=== PATIENT | female | born 1995 | race Caucasian/White ===

== ENCOUNTER 2020-06-17 18:48 | Emergency (ER) | payer OTHER ==
[~2020-06-17] VITALS: Ht 162.6 cm; Wt 85.5 kg
[2020-06-17] MEDS ORDERED: PEPC1TAB5 PO (18:56)
[2020-06-17] MEDS ORDERED: UNIS25TA5 PO (18:56)
[2020-06-17] MEDS ORDERED: MULTTAB20 PO (18:56)
[2020-06-17] MEDS ORDERED: PYRI25TA2 PO (18:56)
[2020-06-17] MEDS ORDERED: ONDA8TAB8 PO (18:56)
[2020-06-17 19:56] LABS: BASO % 0.4 % (0.0-1.0); EOS # 0.1 10^3/uL (0.0-0.5); EOS % 0.7 % (0.0-3.0); HEMATOCRIT 35.8 % (36.0-47.0); HEMOGLOBIN 12.1 g/dl (12.0-15.5); LYMPH # 2.2 10^3/uL (1.5-5.0); LYMPH % 24.2 % (24.0-44.0); MEAN CORPUSCULAR HEMOGLOBIN 29.6 pg (27.0-33.0); MEAN CORPUSCULAR HGB CONC 33.8 g/dl (32.0-36.5); MEAN CORPUSCULAR VOLUME 87.5 fl (80.0-96.0); MONO # 0.7 10^3/uL (0.0-0.8); MONO % 7.7 % (2.0-8.0); NEUTROPHILS # 5.9 10^3/uL (1.5-8.5); NEUTROPHILS % 66.6 % (36.0-66.0); PLATELET COUNT, AUTOMATED 136 10^3/uL (150-450); RED BLOOD COUNT 4.09 10^6/uL (4.00-5.40); WHITE BLOOD COUNT 8.9 10^3/uL (4.0-10.0)
--- NOTE | 2020-06-17 20:29 | REPVR ---
PROCEDURE INFORMATION: Exam: US , Limited Exam date and time: 06/17/2020 8:03 PM Age: 25 years old Clinical indication: Pain; Other: Trauma; Gestational age or lmp: 15wks; ; Additional info: Preg trauma TECHNIQUE: Imaging protocol: Real-time ultrasound of the maternal uterus with image documentation. Exam focused on the clinical indication. COMPARISON: No relevant prior studies available. FINDINGS: Gestation: Single intrauterine gestation. heart rate: heart rate 160 bpm Placenta: Low-lying posterior fundal placenta to be evaluated later in to exclude placenta previa. Amniotic fluid index: KAYLIN 10.5 cm. MATERNAL: Cervix: Cervix measures 4.1 cm. No evidence of bulging membranes or funneling. IMPRESSION: 1. No acute findings. 2. Low posterior fundal placenta to be evaluated later in to exclude placenta previa. Electronically signed by: Jhonatan Espinoza On 06/17/2020 20:29:42 PM
[2020-06-17 20:32] LABS: BLOOD UREA NITROGEN 8 MG/DL (7-18); CALCIUM LEVEL 9.4 MG/DL (8.5-10.1); CARBON DIOXIDE LEVEL 21 MEQ/L (21-32); CHLORIDE LEVEL 105 MEQ/L (98-107); CPK CREATINE PHOSPHOKINASE 73 U/L (26-192); CREATININE FOR GFR 0.62 MG/DL (0.55-1.30); FREE T4 0.88 NG/DL (0.76-1.46); GLOMERULAR FILTRATION RATE > 60.0 (>60); GLUCOSE, FASTING 107 MG/DL (70-100); MAGNESIUM LEVEL 1.8 MG/DL (1.8-2.4); POTASSIUM SERUM 3.8 MEQ/L (3.5-5.1); SODIUM LEVEL 137 MEQ/L (136-145); TROPONIN I < 0.02 NG/ML (< 0.10)
[2020-06-17 20:42] LABS: HCG, SERUM QUANTITATIVE 36760 MIU/ML; MB/CK RELATIVE INDEX 1.37 (< OR =4)
[2020-06-17 23:15] VITALS: BP 141/84
--- NOTE | 2020-06-18 10:15 | ECGEPIP ---
[facility] - ED Test Date: 2020-06-17 Pat Name: ALVIN ABAD Department: Room: - Gender: Female Organic Chemist: JACKIE : 1995 Requested By: RICARDO Garcia Order Number: [id number] Reading MD: Clarita Hicks Measurements Intervals [place] Rate: 89 P: 19 AK: 116 QRS: 28 QRSD: 94 T: 20 QT: 356 QTc: 433 Interpretive Statements Normal sinus rhythm Incomplete right bundle branch block no prior Electronically Signed on 06-18-2020 10:14:55 EDT by Clarita Hicks
== END 2020-06-17 23:30 | disposition home or self-care (01) ==
LOC: M ED 18:48
DX: O20.0 Threatened abortion (principal); O99.891 Other specified diseases and conditions complicating pregnancy; R55 Syncope and collapse; O44.42 Low lying placenta NOS or without hemorrhage, second trimester; O99.412 Diseases of the circulatory system complicating pregnancy, second trimester; Z3A.15 15 weeks gestation of pregnancy

== ENCOUNTER 2020-07-11 10:26 | Emergency (ER) | payer OTHER ==
[~2020-07-11] VITALS: Ht 162.6 cm; Wt 85.3 kg
[~2020-07-11 10:26] MED LIST: MULTTAB20 PO; ONDA8TAB8 PO; PEPC1TAB5 PO; PYRI25TA2 PO; UNIS25TA5 PO
[2020-07-11 11:05] LABS: BASO % 0.4 % (0.0-1.0); EOS # 0.1 10^3/uL (0.0-0.5); EOS % 0.7 % (0.0-3.0); HEMATOCRIT 34.4 % (36.0-47.0); HEMOGLOBIN 11.7 g/dl (12.0-15.5); LYMPH # 1.7 10^3/uL (1.5-5.0); LYMPH % 24.7 % (24.0-44.0); MEAN CORPUSCULAR HEMOGLOBIN 30.3 pg (27.0-33.0); MEAN CORPUSCULAR VOLUME 89.1 fl (80.0-96.0); MONO # 0.5 10^3/uL (0.0-0.8); MONO % 7.5 % (2.0-8.0); NEUTROPHILS # 4.5 10^3/uL (1.5-8.5); PLATELET COUNT, AUTOMATED 128 10^3/uL (150-450); RED BLOOD COUNT 3.86 10^6/uL (4.00-5.40); WHITE BLOOD COUNT 6.8 10^3/uL (4.0-10.0)
--- NOTE | 2020-07-11 11:48 | REP ---
INDICATION: BLEEDING, CRAMPING. TECHNIQUE: Transabdominal FINDINGS: Multiple ultrasonographic images of the gravid uterus shows a single living intrauterine gestation in the caprice breech presentation. Doppler interrogation of the heart shows a heart rate of 165 beats per minute. The placenta is posterior and not low-lying. The cervix measures 4.9 cm in length and is closed. Doppler interrogation of the umbilical artery shows an AB ratio of 3.09. The subjective amniotic fluid volume is within normal limits. The calculated amniotic fluid index is 12.9 within expected range 8.8 to 20.4. IMPRESSION: Limited OB ultrasound as described above it is all signs <Electronically signed by Stevie Louis > 07/11/20 [id number]
[2020-07-11] MEDS ORDERED: cefTRIAXone SOD 1 GM in D5W MINI-BAG PLUS 50 ML IV ONE (12:20)
[2020-07-11 13:30] VITALS: BP 131/70
--- NOTE | 2020-07-12 08:18 | ED PDOC ---
Post-Departure Follow-Up radiology rpeort faxed to Clarita Ellington MD July 12, 2020 08:18
== END 2020-07-11 13:45 | disposition home or self-care (01) ==
LOC: M ED 10:26
DX: O20.0 Threatened abortion (principal); O99.891 Other specified diseases and conditions complicating pregnancy; R30.0 Dysuria; Z3A.18 18 weeks gestation of pregnancy; Z79.899 Other long term (current) drug therapy
CPT/HCPCS: 76815; 81001; 85025; 86850; 86900; 86901; 87086; 96365; 99283; J0696

== ENCOUNTER 2020-11-12 21:18 | Outpatient (CLI) | payer OTHER ==
--- NOTE | 2020-11-12 22:24 | IPNPDOC ---
Text Note Date of Service The patient was seen on 11/12/20. NOTE 25 yo at 36+0 weeks gestation presented to L&D with the complaint of decreased movement over the last 24 hours and intermittent contractions. She denies bleeding or leakage of fluid. She reports throughout her entire and all previous pregnancies that she has had trouble feeling her babies move and never gets her kick counts. This feeling is not unusual for her . However, she had soda before she came to triage and felt the baby move when she got here. Chaperoned by RN Vitals - VSS, afebrile, normotensive, non tachycardic General - AAOX3, sitting up in bed, pleasant and conversant, NAD. Abdomen - Gravid uterus appropriate size for gestational age. No fundal tenderness. Fetus visible moving on abdomen Cervix - 50/-3 FHR tracing - Cat I with baseline 135, moderate variability, numerous accels, no decels. Intermittent ctx on toco. Bedside TAUS ( anatomy not assessed): Viable SIUP in cephalic presentation. Incidental 8/8 BPP in less than 5 minutes. KAYLIN 21.4 cm. 10/10 BPP based on NST and bedside US. Not in active labor. Patient felt and saw movement while in triage and was reassured. I offered to recheck her cervix in a couple hours to assess for change but she declined and desired to return home. She has an appointment next week in the office. Discharge return precautions discussed. All questions answered. 30 minutes MYLES Arias DO Nov 12, 2020 22:24
== END 2020-11-12 22:28 | disposition home or self-care (01) ==
LOC: M LDO 21:18
PROVIDERS: ATTEND Obstetrics & Gynecology
DX: O36.8130 Decreased fetal movements, third trimester, not applicable or unspecified (principal); Z3A.36 36 weeks gestation of pregnancy
CPT/HCPCS: 59025; G0378; G0463

== ENCOUNTER 2020-12-10 21:46 | Inpatient (IN) | payer OTHER ==
[~2020-12-10] VITALS: Ht 162.6 cm; Wt 94.0 kg
[2020-12-10 22:06] VITALS: BP 141/72
[2020-12-10] MEDS ORDERED: [UNRECOGNIZED DRUG - CODE] PO (22:09)
[2020-12-10] MEDS ORDERED: HOME MED LIST COMPLETE! XX SCH (22:10)
[2020-12-10] MEDS ORDERED: TRANEXAMIC ACID INJection 1,000 MG in NS 100 ML IV PRN (23:25)
[2020-12-10] MEDS ORDERED: LR 1,000 ML IV SCH (23:25)
[2020-12-10] MEDS ORDERED: LIDOCAINE 1% MDV 20ML VIAL INFIL PRN (23:25)
[2020-12-10] MEDS ORDERED: OXYTOCIN DRIP 30 UNITS in IV 1 EA IV PRN ×4 (23:25)
[2020-12-10] MEDS ORDERED: OXYTOCIN INJ 10 UNITS/ML VIAL (J2590) IM PRN (23:25)
[2020-12-10] MEDS ORDERED: miSOPROStol 25MCG 1/4 TABLET PO ONE (23:25)
[2020-12-10] MEDS ORDERED: CARBOPROST TROMETHAMINE 250 MCG/ML AMP IM PRN (23:25)
[2020-12-10] MEDS ORDERED: LACTATED RINGER'S 1000 ML IV STA (23:25)
[2020-12-10] MEDS ORDERED: OXYTOCIN INJ 10 UNITS/ML VIAL (J2590) IV PRN (23:25)
[2020-12-10] MEDS ORDERED: OXYTOCIN DRIP 30 UNITS in IV 1 EA IV SCH (23:25)
[2020-12-10 23:31] VITALS: BP 132/98
[2020-12-10 23:34] VITALS: BP 106/53
--- NOTE | 2020-12-10 23:44 | HPEPDOC ---
Obstetrical History & Physical General Date of Admission Dec 10, 2020 at 23:19 History of Present Illness The patient is a 25 yo @ 40W0D by LMP C/W 9 WK US admitted for IOL at term. patient presented to triage for contractions for the last few hours and was found to be 1 cm, unchanged from clinic the day prior when her membranes were stripped. She denies any vaginal bleeding, abnormal vaginal discharge, leakage of fluids, urinary symptoms. She denies any new headaches, visual abnormalities, chest pain, worsening dyspnea, facial swelling, or upper e xtremity swelling. At this time, she continues to report regular movement. Information Provided By: Patient Care Care: Good Care Dating Final EDC: Dec 10, 2020 Final EDC by: LMP LMP: Mar 05, 2020 Estimated Date of Confinement: Dec 10, 2020 EGA at Admission: 40 Antepartum Course Diagnos(e)s 1. OBESITY, PP BMI 31 2. 2 vessel Cord 3. Anemia- admission h/h: pending 4. Gestational thrombocytopenia- admission plt: pending 5. Varicella non immune- give vaccine pp Height (inches): 64 Pre- weight (lbs.): 182 Admission Weight (lbs.): 206 Change in Weight (lbs.): 24 Past Medical History Past Obstetrical History : Past Obstetrical History: Multigravida [employer] History: No pertinent history Past Medical History Medical History obese Surgical History: Denies/None Family History Significant Family History: No pertinent family hx Social History Marital Status: Psychosocial History: No pertinent psych hx * Smoker: non-smoker Alcohol: Denies Drugs: denies Abuse Violence Screening Have you been hit/kicked/slapp: No Have you been sexually assault: No Imunizations Tdap status: declined Influenza Status: declined Allergies Coded Allergies: No Known Allergies (Unverified , 06/17/20) Medications Scheduled Famotidine (Pepcid) 20 Mg Tablet, 1 TAB PO BID No122/Iron/Folic Acid ( Multi Tablet) 1 Each Tablet, 1 TAB PO DAILY Miscellaneous Medications Guaifenesin (Mucinex) 100 Mg Gran.pack, 100 MG PO Physical Examination Physical Examination GENERAL: Alert and oriented times three. BREAST: . ABDOMEN: Gravid and non-tender to touch. FETUS: Is vertex (VTX) by sterile vaginal examination (SVE) HEART RATE: Regular rate and rhythm. LUNGS: normal work of breathing EXTREMITIES: No edema. Vital Signs/I&O Vital Signs Date Time Temp Pulse Resp B/P (MAP) Pulse Ox O2 Delivery O2 Flow Rate FiO2 12/10/20 22:06 98.7 105 16 141/72 (95) Laboratory Data Urine Culture: No Growth Pertinent Laboratoy Data Blood Type: O+ RBC Antibody Screen: Negative HIV: Negative Hepatitis B: Negative Rapid Plasma Reagin: Nonreactive Rubella: Immune Varicella: Nonreactive Chlamydia/Gonorrhea: Negative Group B Streptococcus: Negative Quad Screen Test: Negative Cystic Fibrosis: Unknown Glucose Tolerance Test: 140 Anatomy Ultrasound Placenta Location: Posterior Normal Anatomy: No (2 vessel cord) Placenta Previa: No Steroid Therapy Steroid Therapy: No Vaginal Examination Dilation: 2cm Assessment Heart Rate (FHR): 140 Variability: Moderate Accelerations: Present Decelerations: None Tocometer Contractions: Yes Frequency: regular Strength: palpated as mild Multi-drug resistant Organism: No history of MDRO Assessment/Plan Assessment Assessment: The patient is a 25 yo @ 40W0D by LMP C/W 9 WK US admitted for IOL at term.Pelvis proven to 9lbs 5 oz. Pelvis Adequate for trial of labor. Category I FHRT. APC: 1. OBESITY, PP BMI 31 2. 2 vessel Cord 3. Anemia- admission h/h: pending 4. Gestational thrombocytopenia- admission plt: pending 5. Varicella non immune- give vaccine pp 6.Abnormal 1hrs, normal 3hrs GTT SVE: /-1 GBS NEG Cephalic by vag exam EFW 3700G RH POS Placenta POSTERIOR no previa Plan Plan: - Admit to L&D. - Consent signed and given to RN - CBC with type and screen. - EFM x2 - Patient does not want epidural for now - Risks of augmentation with Cytotec, Hassan-Bulb, and Pitocin discussed with patient. - Start cervical ripening with double lumen fole bulb Labor and Delivery Counseling We will deliver your baby through the vagina with possible assistance of forceps or vacuum device if needed for maternal or indications. Forceps and vacuum are devices that can assist with vaginal delivery when normal pushing efforts cannot achieve delivery on their own or when delivery is needed in an emergency for baby's well-being. Medications may be required to induce or augment (help) your labor in order to achieve a vaginal delivery. An episiotomy may be required to help your baby to delivery vaginally. You may also require repair of any lacerations or tears of your vagina or vulva that are caused by delivery. In some cases, emergencies can occur that require an emergency section delivery so quickly that there may not be enough time to stop and complete consent forms for section. Understand that if this occurs, your providers will discuss the need for a section with you before they proceed with surgery. section is the delivery of your baby through an incision in your abdomen. In some situations, section may be safer to mom and baby than continuing labor and is only performed when clinically indicated. Risks of vaginal delivery include but are not limited to: Bleeding, infection, injury to the vagina, pelvic structures, injury to baby, damage to the uterus, reactions to anesthesia, uterine rupture, risk of hysterectomy for life threatening bleeding, or . Medications used to induce or augment labor may increase your risk for infection, uterine tachysystole, uterine rupture, heart rate abnormalities, need for emergency delivery or possible hysterectomy, and hemorrhage. Additional risks for use of forceps and vacuum include: increased risk of perineal and vaginal lacerations, risk of urinary or bowel incontinence, increased risk of injury to baby with bruising, scratches, hematomas on the head, or intracranial bleeding. DERICK MAIER MD Dec 10, 2020 23:44
[2020-12-11 00:36] LABS: HEMATOCRIT 37.8 % (36.0-47.0); HEMOGLOBIN 12.5 g/dl (12.0-15.5); MEAN CORPUSCULAR HEMOGLOBIN 30.8 pg (27.0-33.0); MEAN CORPUSCULAR HGB CONC 33.1 g/dl (32.0-36.5); MEAN CORPUSCULAR VOLUME 93.1 fl (80.0-96.0); PLATELET COUNT, AUTOMATED 137 10^3/uL (150-450); RED BLOOD COUNT 4.06 10^6/uL (4.00-5.40); WHITE BLOOD COUNT 11.7 10^3/uL (4.0-10.0)
[2020-12-11 01:01] VITALS: BP 133/77
[2020-12-11 02:11] LABS: ALT/SGPT 23 U/L (12-78); BILIRUBIN,TOTAL 0.2 MG/DL (0.2-1.0); CREATININE FOR GFR 0.56 MG/DL (0.55-1.30); GLOMERULAR FILTRATION RATE > 60.0 (>60); LDH LACTATE DEHYDROGENASE 204 U/L (84-246); URIC ACID 3.6 MG/DL (2.6-6.0)
[2020-12-11 03:17] VITALS: BP 122/74
--- NOTE | 2020-12-11 03:31 | IPNPDOC ---
Obstetrical Progress Note Date of Service Dec 11, 2020 Subjective to room for assessment. patient feeling increased pelvic pressure after DLFB came out FHT: 140, MOD LINETTE,+Accelssss, early decel--cat I tracing TOCO: -07/13 SVE: 6/75/-1, AROM CLEAR A/P ACTIVE LABOR. CAT I tracing. arom with clear fluids. continue active management. anticipate . Objective Vital Signs Date Time Temp Pulse Resp B/P (MAP) Pulse Ox O2 Delivery O2 Flow Rate FiO2 12/11/20 01:01 104 133/77 (95) 12/10/20 22:06 98.7 16 DREICK MAIER MD Dec 11, 2020 03:31
[2020-12-11 04:41] VITALS: BP 123/75
[2020-12-11 05:39] LABS: CORD GAS ABE V -3.4; CORD GAS HCO3 V 21.3 MEQ/L; CORD GAS O2 SAT V 76.7 %; CORD GAS PCO2 V 37.5 mmHg; CORD GAS PH V 7.372 UNITS; CORD GAS PO2 V 34.8 mmHg; CORD GAS SBC V 21.2 MEQ/L; CORD GAS TCO2 V 22.4 MEQ/L
[2020-12-11] MEDS ORDERED: METHYLERGONOVINE MALEATE 0.2 MG TAB PO PRN (05:45)
[2020-12-11] MEDS ORDERED: DIBUCAINE 1% OINTMENT 30GM TOP PRN (05:45)
[2020-12-11] MEDS ORDERED: MOM 30ML SUSPENSION UDC PO PRN (05:45)
[2020-12-11] MEDS ORDERED: RHOGAM 300 MCG (1500 IU) INJ (J2790) IM SCH (05:45)
[2020-12-11] MEDS ORDERED: ANUSOL HC CREAM 30GM TOP PRN (05:45)
[2020-12-11] MEDS ORDERED: IBUPROFEN 800 MG TAB PO PRN (05:45)
[2020-12-11] MEDS ORDERED: MEASLES,MUMPS,RUBELLA VACCINE INJ (MMR-II) (90707) SC SCH (05:45)
[2020-12-11] MEDS ORDERED: DOCUSATE SODIUM 100MG CAPSULE PO PRN (05:45)
--- NOTE | 2020-12-11 05:56 | DNPDOC ---
[facility] Delivery Note Delivery Note DATE OF DELIVERY: 12/11/2020 PREDELIVERY DIAGNOSIS: 40-0/7 weeks' gestation and labor. POST DELIVERY DIAGNOSIS: Delivered. PROCEDURE:Spontaneous vaginal delivery BELT AND LINK ASSEMBLY SUPERVISOR: Tariq Carr MD ANESTHESIA: NONE ESTIMATED BLOOD LOSS: 200 mL. FINDINGS: 8 pound 5 ounce, 3770G MALE infant, Score5/8 , NO nuchal cord times DELIVERY SUMMARY: Patient is a 25 YO S/P AT TERM after being admitted for IOL AT 40 WEEKS. She progressed to C/C/+2 and with good maternal effort delivered a viable infant. The infants head delivered OA and the head was allowed to spontaneously restitute LACEY. NO nuchal cord CORD . anterior shoulders delivered with gentle downward traction followed by posterior shoulder and corpus without difficulty. Normal 3-vessel cord clamped x 2 and cut by FOB after 1 minute of delayed cord clamping. Spontaneous cry noted. placed on maternal abdomen for [id number] Cord blood obtained. Placenta delivered spontaneously and inspection of the placenta demonstrated that it was intact. The cord insertion appeared normal. The uterus was cleared of all clots and debris. Fundal massage until firm. 30 units of Pitocin administered per protocol and the patient required no additional uterotonics. Inspection of cervix, perineum, and vaginal wall revealed 1st degree laceration that was repaired in the usual fashion with a 2-0 vicryl. . Repeat uterine examination noted uterine tone to be adequate and firm. Mom and stayed in L&D in hemodynamic stable condition upon my departure. Sponge, lap and needle count correct x 2. RICK MAIER Staff DERICK MAIER MD Dec 11, 2020 05:56
[2020-12-11] MEDS: PRENATAL VITAMINS CHEWABLE TABLET PO SCH (09:00)
[2020-12-11 10:00] VITALS: BP 102/55
[2020-12-11] MEDS: DOCUSATE SODIUM 100MG CAPSULE PO SCH ×2 (15:52→20:03)
[2020-12-11 18:00] VITALS: BP 138/80
[2020-12-11] MEDS: ACETAMINOPHEN 500 MG TAB PO PRN (19:44)
[2020-12-12] MEDS: ACETAMINOPHEN 500 MG TAB PO PRN (01:47)
[2020-12-12 06:20] VITALS: BP 125/80
[2020-12-12] MEDS: PRENATAL VITAMINS CHEWABLE TABLET PO SCH (09:00)
[2020-12-12] MEDS: DOCUSATE SODIUM 100MG CAPSULE PO SCH (09:00)
--- NOTE | 2020-12-12 09:06 | IPNPDOC ---
Progress Note Date of Service: Dec 12, 2020 Day#: 1 Progress Note Ms. Cee is a 25yo dya 1 after an uncomplicated vaginal del allyson at term after admission for induction at 40 weeks gestation. 8 pound 5 ounce, 3770G MALE infant, Score5/8, EBL 200cc. She has been ambulating, voiding spontaneously without issue and tolerating regular diet. Breast feeding without issue. Reports lochia is less than a normal period. Patient is ambulating well. Reports some cramping with . Denies any pain. V oiding and stooling without difficulty. OBJECTIVE: VITAL SIGNS: Within normal limits, afebrile. Alert and oriented times three. No increased work of breathing. Heart rate: non-tachycardic Abdomen: Fundus firm at U-2. Soft, NTTP. [Minimal] lochia per patient. ASSESSMENT: Ms. Cee is a 25yo dya 1 after an uncomplicated vaginal delivery at term after admission for induction at 40 weeks gestation. 8 pound 5 ounce, 3770G MALE infant, Score5/8, EBL 200cc. Vitals within normal limits, afebrile, hemodynamically stable with no evidence of infection. PLAN: 1. Discharge to home today. 2. Tylenol and Motrin for pain. 3. Encourage breast feeding and ambulation. 4. Desires minipill for contraception 5. Routine PP visit in 6 weeks in clinic. 6. Discussed return precautions at length and activity limitations (pelvic rest). VS, I&O, 24H, Fishbone Vital Signs/I&O Vital Signs Date Time Temp Pulse Resp B/P (MAP) Pulse Ox O2 Delivery O2 Flow Rate FiO2 12/12/20 06:20 96.7 91 18 125/80 (95) 12/11/20 18:00 99 Room Air I&O- Last 24 Hours up to 6 AM 12/12/20 06:00 Output Total 200 ml Balance -200 ml HEATH LARSON DO Dec 12, 2020 09:06
--- NOTE | 2020-12-12 09:08 | OBDS ---
[facility] Obstetrical Discharge Sum. Obstetrical Discharge Summary Date: Dec 12, 2020 A/P, Post Course List any complications Ms. Cee is a 25yo dya 1 after an uncomplicated vaginal delivery at term after admission for induction at 40 weeks gestation. 8 pound 5 ounce, 3770G MALE infant, Score5/8, EBL 200cc. She has been ambulating, voiding spontaneously without issue and tolerating regular diet. Breast feeding without issue. Reports lochia is less than a normal period. Patient is ambulating well. Reports some cramping with . Denies any pain. Voiding and stooling without difficulty. Vitals within normal limits, afebrile, hemodynamically stable with no evidence of infection. PLAN: 1. Discharge to home today. 2. Tylenol and Motrin for pain. 3. Encourage breast feeding and ambulation. 4. Desires minipill for contraception 5. Routine PP visit in 6 weeks in clinic. 6. Discussed return precautions at length and activity limitations (pelvic rest). Final diagnosis: vaginal delivery HEATH LARSON DO Dec 12, 2020 09:08
--- NOTE | 2020-12-12 14:36 | IPN ---
PROGRESS NOTE DATE: 12/12/2020 SUBJECTIVE: This patient requested circumcision of her male infant. After discussing risks and benefits of the circumcision, the medical and nonmedical indications, the penile block and aftercare, expressed understanding of penile block, aftercare, signed the consent form. All questions were answered, 20 minute discussion. We await clearance by the sales marketing director.
== END 2020-12-12 18:10 | disposition home or self-care (01) | DRG 807 ==
LOC: M LDO 21:46 → M LDI 23:19 → M OBS 12-11 09:29
PROVIDERS: ADMIT Obstetrics & Gynecology; ATTEND Obstetrics & Gynecology
PROC: 3E033VJ Introduction of Other Hormone into Peripheral Vein, Percutaneous Approach (ICD-10-PCS; 2020-12-10)
PROC: 10E0XZZ Delivery of Products of Conception, External Approach (ICD-10-PCS; principal; 2020-12-11)
PROC: 10907ZC Drainage of Amniotic Fluid, Therapeutic from Products of Conception, Via Natural or Artificial Opening (ICD-10-PCS; 2020-12-11)
PROC: 0HQ9XZZ Repair Perineum Skin, External Approach (ICD-10-PCS; 2020-12-11)
DX: O48.0 Post-term pregnancy (principal); Z37.0 Single live birth; Z3A.40 40 weeks gestation of pregnancy; O99.02 Anemia complicating childbirth; D64.9 Anemia, unspecified; O99.214 Obesity complicating childbirth; E66.9 Obesity, unspecified; O70.0 First degree perineal laceration during delivery

== ENCOUNTER → 2023-02-07 | Outpatient (CLI) | payer OTHER ==
[~2023-02-07] MED LIST changes: +[UNRECOGNIZED DRUG - CODE] PO
[2023-02-07 17:36] LABS: HEMATOCRIT 36.4 % (36.0-47.0); HEMOGLOBIN 12.7 g/dl (12.0-15.5); MEAN CORPUSCULAR HEMOGLOBIN 30.5 pg (27.0-33.0); MEAN CORPUSCULAR HGB CONC 34.9 g/dl (32.0-36.5); MEAN CORPUSCULAR VOLUME 87.3 fl (80.0-96.0); PLATELET COUNT, AUTOMATED 146 10^3/uL (150-450); RED BLOOD COUNT 4.17 10^6/uL (4.00-5.40)
[2023-02-07 18:37] LABS: HIV 1&2 SCREEN NEGATIVE (NEGATIVE)
[2023-02-07 18:45] LABS: HEPATITIS C VIRUS ABY INDEX 0.07 INDEX (<0.8)
[2023-02-07 20:08] LABS: CHLAMYDIA DNA AMPLIFICATION NEGATIVE (NEGATIVE); GC DNA AMPLIFICATION NEGATIVE (NEGATIVE)
== END ==
LOC: M PLALAB 15:24
PROVIDERS: ATTEND Advanced Practice Midwife
DX: Z34.91 Encounter for supervision of normal pregnancy, unspecified, first trimester (principal)

== ENCOUNTER → 2023-03-14 | Outpatient (REF) | payer OTHER | LOC: M PLALAB 11:02 | PROVIDERS: ATTEND Advanced Practice Midwife | DX: Z34.92 Encounter for supervision of normal pregnancy, unspecified, second trimester (principal) | CPT/HCPCS: 87086; G0463 ==

== ENCOUNTER → 2023-04-14 | Outpatient (CLI) | payer OTHER | LOC: M WHC 11:41 | PROVIDERS: ATTEND Advanced Practice Midwife | DX: Z34.92 Encounter for supervision of normal pregnancy, unspecified, second trimester (principal); Z3A.22 22 weeks gestation of pregnancy ==

== ENCOUNTER → 2023-04-28 | Outpatient (CLI) | payer OTHER ==
[2023-04-28 13:44] LABS: MEAN CORPUSCULAR HEMOGLOBIN 30.6 pg (27.0-33.0); MEAN CORPUSCULAR HGB CONC 33.3 g/dl (32.0-36.5); MEAN CORPUSCULAR VOLUME 91.7 fl (80.0-96.0); PLATELET COUNT, AUTOMATED 137 10^3/uL (150-450); WHITE BLOOD COUNT 9.3 10^3/uL (4.0-10.0)
[2023-04-28 13:50] LABS: THYROID STIMULATING HORMONE 0.928 uIU/ML (0.55-4.78)
[2023-04-28 15:46] LABS: GC DNA AMPLIFICATION NEGATIVE (NEGATIVE)
== END ==
LOC: M PLALAB 09:56
PROVIDERS: ATTEND Advanced Practice Midwife
DX: Z34.92 Encounter for supervision of normal pregnancy, unspecified, second trimester (principal)

== ENCOUNTER 2023-05-30 11:05 | Outpatient (CLI) | payer OTHER ==
[~2023-05-30] VITALS: Ht 162.6 cm; Wt 91.6 kg
[2023-05-30 11:19] VITALS: BP 161/94
[2023-05-30] MEDS ORDERED: FERR324T21 PO (11:33)
[2023-05-30 11:35] VITALS: BP 137/70
[2023-05-30] MEDS ORDERED: HOME MED LIST COMPLETE! XX SCH (11:35)
[2023-05-30 11:49] VITALS: BP 134/71
[2023-05-30 13:51] LABS: BASO % 0.4 % (0.0-1.0); EOS # 0.1 10^3/uL (0.0-0.5); EOS % 0.6 % (0.0-3.0); HEMATOCRIT 31.5 % (36.0-47.0); HEMOGLOBIN 10.1 g/dl (12.0-15.5); LYMPH # 1.6 10^3/uL (1.5-5.0); LYMPH % 19.2 % (24.0-44.0); MEAN CORPUSCULAR HEMOGLOBIN 29.8 pg (27.0-33.0); MEAN CORPUSCULAR HGB CONC 32.1 g/dl (32.0-36.5); MEAN CORPUSCULAR VOLUME 92.9 fl (80.0-96.0); MONO # 0.5 10^3/uL (0.0-0.8); MONO % 6.1 % (2.0-8.0); NEUTROPHILS # 6.1 10^3/uL (1.5-8.5); NEUTROPHILS % 71.7 % (36.0-66.0); PLATELET COUNT, AUTOMATED 138 10^3/uL (150-450); RED BLOOD COUNT 3.39 10^6/uL (4.00-5.40); WHITE BLOOD COUNT 8.5 10^3/uL (4.0-10.0)
[2023-05-30 14:22] LABS: ALBUMIN 2.4 G/DL (3.2-5.2); ALKALINE PHOSPHATASE 80 U/L (46-116); ALT/SGPT 23 U/L (7.0-40); AST/SGOT 21 U/L (<34); BILIRUBIN,TOTAL 0.2 MG/DL (0.3-1.2); BLOOD UREA NITROGEN 7 MG/DL (9-23); CARBON DIOXIDE LEVEL 25 MMOL/L (20-31); CHLORIDE LEVEL 104 MMOL/L (98-107); CREATININE FOR GFR 0.45 MG/DL (0.55-1.30); GLOMERULAR FILTRATION RATE > 60.0 (>60); GLUCOSE, FASTING 124 MG/DL (60-100); POTASSIUM SERUM 3.8 MMOL/L (3.5-5.1); SODIUM LEVEL 136 MMOL/L (136-145); TOTAL PROTEIN 6.1 G/DL (5.7-8.2)
[2023-05-31 15:57] LABS: CALCIUM LEVEL 8.7 MG/DL (8.5-10.1)
== END 2023-05-30 14:56 | disposition home or self-care (01) ==
LOC: M LDO 11:05
PROVIDERS: ATTEND Specialist
DX: O26.893 Other specified pregnancy related conditions, third trimester (principal); R42 Dizziness and giddiness; Z3A.29 29 weeks gestation of pregnancy
CPT/HCPCS: 36415; 59025; 80053; 85025; 93005; G0463

== ENCOUNTER 2023-06-08 07:31 | Outpatient (CLI) | payer OTHER ==
[~2023-06-08] VITALS: Ht 165.1 cm; Wt 93.1 kg
[~2023-06-08 07:31] MED LIST changes: +FERR324T21 PO
[2023-06-08 07:45] VITALS: BP 141/81; O2SAT 100
[2023-06-08] MEDS: IRON SUCROSE 500 MG in NS 250 ML OVER 4 HRS IV ONE (08:27)
[2023-06-08 09:30] VITALS: BP 131/71; O2SAT 98
[2023-06-08 10:30] VITALS: BP 131/69; O2SAT 98
[2023-06-08 11:30] VITALS: BP 151/71; O2SAT 96
[2023-06-08 13:00] VITALS: BP 133/75; O2SAT 97
== END 2023-06-08 13:10 ==
LOC: M INFU 07:31
PROVIDERS: ATTEND Specialist
DX: D64.9 Anemia, unspecified (principal)
CPT/HCPCS: 96365; 96366; J1756

== ENCOUNTER → 2023-06-15 | Outpatient (CLI) | payer OTHER | LOC: M WHC 07:31 | PROVIDERS: ATTEND Advanced Practice Midwife | DX: Z34.93 Encounter for supervision of normal pregnancy, unspecified, third trimester (principal); Z3A.31 31 weeks gestation of pregnancy ==

== ENCOUNTER → 2023-07-19 | Outpatient (REF) | payer OTHER | LOC: M PLALAB 11:30 | PROVIDERS: ATTEND Advanced Practice Midwife | DX: Z34.83 Encounter for supervision of other normal pregnancy, third trimester (principal); Z36.85 Encounter for antenatal screening for Streptococcus B ==

== ENCOUNTER 2023-07-22 11:46 | Outpatient (CLI) | payer OTHER ==
[~2023-07-22] VITALS: Ht 162.6 cm; Wt 95.0 kg
[2023-07-22 12:08] VITALS: BP 131/68
[2023-07-22] MEDS ORDERED: TUMS500C PO (12:10)
[2023-07-22] MEDS ORDERED: ACET325C5 PO (12:10)
[2023-07-22] MEDS ORDERED: HOME MED LIST COMPLETE! XX SCH (12:15)
[2023-07-22 12:43] LABS: APPEARANCE, URINE HAZY (CLEAR); BACTERIA, URINE AUTO NEGATIVE (NEGATIVE); BILIRUBIN, URINE AUTO NEGATIVE (NEGATIVE); BLOOD, URINE BLOOD NEGATIVE (NEGATIVE); COLOR, URINE YELLOW (YELLOW); GLUCOSE, URINE (UA) AUTO NEGATIVE (NEGATIVE); KETONE, URINE AUTO 1+ mg/dL (NEGATIVE); LEUKOCYTE ESTERASE, URINE AUTO NEGATIVE (NEGATIVE); MUCUS, URINE SMALL (NEGATIVE); NITRITE, URINE AUTO NEGATIVE (NEGATIVE); PROTEIN, URINE AUTO NEGATIVE (NEGATIVE); RBC, URINE AUTO 1 /HPF (0-3); SPECIFIC GRAVITY URINE AUTO 1.021 (1.002-1.035); SQUAMOUS EPITHELIAL CELL UR AU 3 /HPF (0-6); UROBILINOGEN, URINE AUTO 0.2 mg/dL (0.0-2.0); WBC, URINE AUTO 1 /HPF (0-3)
[2023-07-22 12:59] LABS: BASO % 0.3 % (0.0-1.0); EOS % 0.4 % (0.0-3.0); HEMATOCRIT 31.5 % (36.0-47.0); HEMOGLOBIN 10.6 g/dl (12.0-15.5); LYMPH # 0.6 10^3/uL (1.5-5.0); LYMPH % 8.5 % (24.0-44.0); MEAN CORPUSCULAR HEMOGLOBIN 30.5 pg (27.0-33.0); MEAN CORPUSCULAR HGB CONC 33.7 g/dl (32.0-36.5); MEAN CORPUSCULAR VOLUME 90.5 fl (80.0-96.0); MONO # 0.8 10^3/uL (0.0-0.8); MONO % 10.9 % (2.0-8.0); NEUTROPHILS # 5.6 10^3/uL (1.5-8.5); PLATELET COUNT, AUTOMATED 104 10^3/uL (150-450); RED BLOOD COUNT 3.48 10^6/uL (4.00-5.40); WHITE BLOOD COUNT 7.1 10^3/uL (4.0-10.0)
[2023-07-22 13:21] LABS: ALBUMIN 2.7 G/DL (3.2-5.2); ALKALINE PHOSPHATASE 138 U/L (46-116); ALT/SGPT 30 U/L (7.0-40); AST/SGOT 51 U/L (<34); BILIRUBIN,TOTAL 0.4 MG/DL (0.3-1.2); BLOOD UREA NITROGEN < 5 MG/DL (9-23); CALCIUM LEVEL 8.8 MG/DL (8.5-10.1); CARBON DIOXIDE LEVEL 23 MMOL/L (20-31); CHLORIDE LEVEL 104 MMOL/L (98-107); CREATININE FOR GFR 0.51 MG/DL (0.55-1.30); GLOMERULAR FILTRATION RATE > 60.0 (>60); GLUCOSE, FASTING 89 MG/DL (60-100); POTASSIUM SERUM 3.8 MMOL/L (3.5-5.1); SODIUM LEVEL 135 MMOL/L (136-145)
[2023-07-22] MEDS: LR 1,000 ML IV SCH (14:14)
[2023-07-22] MEDS: LACTATED RINGER'S 1000 ML IV STA (14:14)
[2023-07-22] MEDS: ONDANSETRON 4MG ORAL DISINTEGRATING TAB PO PRN (14:25)
[2023-07-22] MEDS: ACETAMINOPHEN 500 MG TAB PO PRN (16:28)
[2023-07-22 19:03] VITALS: BP 133/61; O2SAT 97
== END 2023-07-22 19:48 | disposition home or self-care (01) ==
LOC: M LDO 11:46
PROVIDERS: ATTEND Specialist
DX: O26.893 Other specified pregnancy related conditions, third trimester (principal); R50.9 Fever, unspecified; R06.02 Shortness of breath; R09.81 Nasal congestion; Z3A.36 36 weeks gestation of pregnancy
CPT/HCPCS: 36415; 59025; 80053; 81001; 83605; 85025; 87040; 87086; 87486; 87581; 87633; 87798; G0463

== ENCOUNTER 2023-08-04 18:44 | Outpatient (CLI) | payer OTHER ==
[~2023-08-04] VITALS: Ht 162.6 cm; Wt 95.8 kg
[~2023-08-04 18:44] MED LIST changes: +ACET325C5 PO; +ONDA-284 PO; -ONDA8TAB8 PO; +TUMS500C PO
[2023-08-04 19:07] VITALS: BP 127/76
[2023-08-04] MEDS ORDERED: HOME MED LIST COMPLETE! XX SCH (21:50)
[2023-08-08] MEDS ORDERED: BENA25CA4 PO (09:24)
== END 2023-08-04 23:23 | disposition home or self-care (01) ==
LOC: M LDO 18:44
PROVIDERS: ATTEND Advanced Practice Midwife
DX: O47.1 False labor at or after 37 completed weeks of gestation (principal); Z3A.38 38 weeks gestation of pregnancy
CPT/HCPCS: 59025; G0463